=== PATIENT | female | born 1965 | race Caucasian/White ===

== ENCOUNTER 2019-11-18 15:12 | Emergency (ER) | payer BC, SELFPAY ==
[2019-11-18 15:36] VITALS: BP 192/96; PULSE 79; RESP 18; TEMP 37.4; O2SAT 99; BMI 42.3
--- NOTE | 2019-11-18 15:40 | DI.RAD.S_ITS ---
PROCEDURE: XR CHEST 2V INDICATIONS: cough, SOB TECHNIQUE: 2 views of the chest were acquired. COMPARISON: None. FINDINGS: Surgical changes and devices: None. Lungs and pleura: Mild appearance of patchy right basilar opacity. Mediastinum: Mediastinal contours are normal. Heart size is normal. Bones and chest wall: No suspicious bony abnormalities. Soft tissues appear unremarkable. IMPRESSION: Mild right basilar patchy opacities suggestive of developing infection such as pneumonia. Dictated by: Lilly Geiger M.D. on 11/18/2019 at 15:02 Approved by: Lilly Geiger M.D. on 11/18/2019 at 15:04
[2019-11-18 16:52] LABS: Influenza A - CEPHEID Flu A NEGATIVE (NEGATIVE); Influenza B - CEPHEID Flu B NEGATIVE (NEGATIVE)
[2019-11-18 17:42] VITALS: BP 124/82; PULSE 79; RESP 19; O2SAT 99
[2019-11-18] MEDS: ACETAMINOPHEN 325 MG TABLET 975 MG PO (17:46)
--- NOTE | 2019-11-18 19:07 | ED.URI ---
HPI - URI/Sore Throat <MEGAN Lyon - Last Filed: 11/18/19 21:10> General Chief Complaint: Upper Respiratory Symptoms Stated Complaint: COUGH FEVER SOB HEADACHE Time Seen by Provider: 11/18/19 15:42 Source: patient Mode of arrival: Ambulatory History of Present Illness HPI Narrative: 54-year-old female presents to the emergency department complaining of a cough, rhinorrhea, and shortness of breath with chills for the past 4 days. She states about 2 weeks prior she had an upper respiratory tract infection that resolved. Her cough lingered since then but has increased in frequency and sputum production over the past few days.. She has increased productive sputum and states she noticed she felt more weak today. She denies any high fevers, nausea, vomiting, diarrhea, chest pain, abdominal pain, or any other concerns. Related Data Previous Rx's Medication Instructions Recorded doxycycline hyclate 100 mg PO BID 7 Days #14 cap 11/18/19 Allergies Allergy/AdvReac Type Severity Reaction Status Date / Time Iodinated Contrast Media Allergy Severe Anaphylaxis Verified 11/18/19 15:40 Review of Systems <MEGAN Lyon - Last Filed: 11/18/19 21:10> Review of Systems Narrative: REVIEW OF SYSTEMS: GENERAL: Reports fevers. HENT: No head trauma or hearing loss. EYES: No loss of vision, double vision, eye pain, irritation or discharge. CARDIOVASCULAR: No chest pain or syncope. RESPIRATORY: Reports productive cough, see HPI. GASTROINTESTINAL: No nausea, vomiting, diarrhea, or constipation. MUSCULOSKELETAL: No weakness or injury. INTEGUMENTARY: No rash, lesions, or pruritus. NEURO: No memory loss, or confusion. Patient History <MEGAN Lyon - Last Filed: 11/18/19 21:10> Medical History No significant family history (Acute) Social History Smoking Status: Never smoker Smoking Status: Never smoker alcohol intake frequency: holidays/special occasions only Substance Use Type: does not use Exam <MEGAN Lyon - Last Filed: 11/18/19 21:10> Initial Vital Signs Initial Vital Signs: Vital Signs Temperature 99.3 F 11/18/19 15:36 Pulse Rate 79 11/18/19 15:36 Respiratory Rate 18 11/18/19 15:36 Blood Pressure 192/96 H 11/18/19 15:36 Pulse Oximetry 99 11/18/19 15:36 PHYSICAL EXAMINATION: GENERAL: Well groomed, alert, and cooperative. Answers questions promptly and appropriately. Vital signs noted. HENT: Normocephalic, atraumatic. Ear canals patent. TMs intact without mucus or erythema. Oropharynx with slight erythema, Tonsils are not present. EYES: Conjunctiva pink, sclera white, no periorbital swelling. No discharge. CHEST: Normal to inspection and without deformities. CARDIOVASCULAR: S1 and S2 sounds normal. Regular rate and rhythm, no murmurs, clicks, or bruits. RESPIRATORY: Normal respiratory rate, trachea midline, airway patent. No stridor, nasal flaring or accessory muscle use. Able to speak in full sentences. Coarse lung sounds, no crackles or wheezes. Productive cough heard throughout examination. MUSCULOSKELETAL: Normal gait and coordination. Equal tone and mass bilaterally. EXTREMITIES: Moves all extremities. SKIN: Warm, dry, soft, appropriate color for ethnicity. No lesions, rashes, or wounds to visualized areas. NEURO: Alert and Oriented X 3. Good coordination. No ataxia or cognitive issues. <Anamaria Hernandez MD - Last Filed: 12/02/19 07:00> Initial Vital Signs Initial Vital Signs: Vital Signs Temperature 99.3 F 11/18/19 15:36 Pulse Rate 79 11/18/19 15:36 Respiratory Rate 18 11/18/19 15:36 Blood Pressure 192/96 H 11/18/19 15:36 Pulse Oximetry 99 11/18/19 15:36 Course <MEGAN Lyon - Last Filed: 11/18/19 21:10> Orders Ordered: Discontinued Medications Acetaminophen (Tylenol) 975 mg PO NOW ONE Stop: 11/18/19 17:42 Last Admin: 11/18/19 17:46 Dose: 975 mg Documented by: KAMILA Vital Signs Vital signs: Vital Signs - 8 hr 11/18/19 15:36 11/18/19 17:42 Temperature 99.3 F Pulse Rate 79 79 Respiratory Rate 18 19 Blood Pressure 192/96 H Blood Pressure [Right Arm] 124/82 Pulse Oximetry 99 99 <Anamaria Hernandez MD - Last Filed: 12/02/19 07:00> Orders Ordered: Discontinued Medications Acetaminophen (Tylenol) 975 mg PO NOW ONE Stop: 11/18/19 17:42 Last Admin: 11/18/19 17:46 Dose: 975 mg Documented by: [facility] Vital Signs Vital signs: Vital Signs - 8 hr 11/18/19 15:36 11/18/19 17:42 Temperature 99.3 F Pulse Rate 79 79 Respiratory Rate 18 19 Blood Pressure 192/96 H Blood Pressure [Right Arm] 124/82 Pulse Oximetry 99 99 MDM - URI/Sore Throat <MEGAN Lyon - Last Filed: 11/18/19 21:10> Medical Records Attestation: I reviewed the patient's medical records. Lab Data Attestation: I reviewed the patient's lab results. Labs: Lab Results 11/18/19 11/18/19 Range/Units 15:42 15:42 Coronavirus (PCR) Not detected (Not Detected) Influenza A (RT-PCR) Flu a negative (NEGATIVE) Influenza B (RT-PCR) Flu b negative (NEGATIVE) Imaging Data Chest x-ray: Radiologist's Impression: [address] [place] [id number] XRay Report Signed Patient: Miladis Parks LMR#: [id number] : 1965Acct:[id number] Age/Sex: 54 / FDate of Service: 11/18/19 Loc: ED Accession Number: [id number] Procedure: XR chest 2V Ordering Provider: Anamaria Hernandez MD PROCEDURE: XR CHEST 2V INDICATIONS: cough, SOB TECHNIQUE: 2 views of the chest were acquired. COMPARISON: None. FINDINGS: Surgical changes and devices: None. Lungs and pleura: Mild appearance of patchy right basilar opacity. Mediastinum: Mediastinal contours are normal. Heart size is normal. Bones and chest wall: No suspicious bony abnormalities. Soft tissues appear unremarkable. IMPRESSION: Mild right basilar patchy opacities suggestive of developing infection such as pneumonia. Dictated by: Lilly Geiger M.D. on 11/18/2019 at 15:02 Approved by: Lilly Geiger M.D. on 11/18/2019 at 15:04 [facility] Narrative Medical decision making narrative: 54-year-old female presenting to the emergency department for worsening cough and shortness of breath after a previous URI. Influenza test is negative. Chest x-ray shows mild patchy opacities. Due to nature of this finding and worsening symptoms, differential includes pneumonia versus viral infection such as COVID-19. COVID-19 test ordered. Patient was started on doxycycline. She was encouraged to follow up with her primary care provider in 1-2 weeks for further evaluation. Strict return precautions given for new or worsening symptoms. Patient was instructed to remain in quarantine until her test results. Patient is hemodynamically stable, not hypoxic, able to walk and talk without significant dyspnea-she is a candidate for outpatient treatment. <Anamaria Hernandez MD - Last Filed: 12/02/19 07:00> Lab Data Labs: Lab Results 11/18/19 11/18/19 Range/Units 15:42 15:42 Coronavirus (PCR) Not detected (Not Detected) Influenza A (RT-PCR) Flu a negative (NEGATIVE) Influenza B (RT-PCR) Flu b negative (NEGATIVE) Discharge Plan Departure Patient Disposition: Home Clinical Impression: Pneumonia Qualifiers: Pneumonia type: due to unspecified organism Laterality: right Lung location: lower lobe of lung Qualified Code(s): J18.9 - Pneumonia, unspecified organism Discharge Date/Time: 11/18/19 18:21 Instructions: DI for Pneumonia -- Adult Activity Restrictions/Additional Instructions: Thank you for entrusting me with your care today. As discussed, your chest x-ray shows a developing pneumonia. I have prescribed you antibiotics, please take them as directed. I have also test you for COVID-19, he will receive this result and 4-5 days. Please stay at home and self isolate yourself until until your symptoms resolved and then an additional 3 days without symptoms. This is to prevent the spread of infection. Please drink lots of fluids, take Tylenol and ibuprofen for fevers. Return emergency department for any new or worsening symptoms such as severe shortness of breath, significant chest pain, uncontrollable vomiting, or any other concerns. Prescriptions: New doxycycline hyclate 100 mg capsule 100 mg PO BID 7 Days Qty: 14 RF: 0
[2019-11-22 19:06] LABS: COVID19 Sendout Not Detected (Not Detected)
== END 2019-11-18 18:21 | disposition home or self-care (01) ==
PROVIDERS: Emergency Medicine; Emergency Provider Nurse Practitioner
DX: J18.9 Pneumonia, unspecified organism (principal)
CPT/HCPCS: 71046; 87502; 87635; 99283